=== PATIENT | female | born 1960 | race Two or more races ===

== ENCOUNTER 2019-04-28 00:21 | Emergency (ER) | payer SELFPAY ==
[~2019-04-28] VITALS: Ht 165.1 cm; Wt 75.0 kg
[2019-04-28] MEDS ORDERED: PLEASE ENTER ALLERGIES MC SCH (01:00)
[2019-04-28] MEDS ORDERED: DIPH,PERTUSS(ACELL),TET VAC/PF 0.5 ML IM-VACC ONE ×2 (01:00→01:29)
[2019-04-28] MEDS ORDERED: LIDOCAINE-MPF 1%, 5ML INFIL ONE (01:00)
[2019-04-28] MEDS ORDERED: NEOSPORIN OINT. PKT 1 PACKET ONE (01:19)
[2019-04-28 01:42] VITALS: BP 128/78
== END 2019-04-28 01:45 | disposition home or self-care (01) ==
LOC: ED 01:34
DX: S11.91XA Laceration without foreign body of unspecified part of neck, initial encounter (principal); I10 Essential (primary) hypertension; W01.0XXA Fall on same level from slipping, tripping and stumbling without subsequent striking against object, initial encounter; Y93.01 Activity, walking, marching and hiking; Y92.89 Other specified places as the place of occurrence of the external cause; Y99.8 Other external cause status
CPT/HCPCS: 12002; 90471; 90715